=== PATIENT | female | born 1940 | race Caucasian/White ===

== ENCOUNTER 2016-12-01 15:15 | Emergency (ER) | payer MEDICARE, BC ==
[2016-12-01 15:47] LABS: BASOPHILS % (AUTO) 1 % (0-3); EOSINOPHILS % (AUTO) 1 % (0-9); HEMATOCRIT 41 % (35-47); MEAN CORPUSCULAR HGB CONC 33.6 gm/dl (32.0-36.0); MEAN CORPUSCULAR VOLUME 85 fL (81-99); MONOCYTES % (AUTO) 13.3 % (0-12); NEUTROPHILS % (AUTO) 52.6 % (37-80)
[2016-12-01 15:48] VITALS: TEMP 96
[2016-12-01] MEDS ORDERED: LOSARTAN POTASSIUM 50 MG TAB PO ONE (15:50)
[2016-12-01] MEDS ORDERED: PROPRANOLOL HYDROCHLORIDE 20 MG TAB PO ONE (15:50)
[2016-12-01 15:59] LABS: ALBUMIN 3.4 gm/dl (3.4-5.0); CALCIUM 9.2 mg/dl (8.5-10.1); POTASSIUM 3.6 mMol/L (3.5-5.1)
[2016-12-01] MEDS ORDERED: LOSARTAN POTASSIUM 50 MG TAB ONE (16:00)
[2016-12-01] MEDS ORDERED: LABETALOL HYDROCHLORIDE 5 MG/ML SOL IV ONE ×2 (17:16→17:20)
[2016-12-01] MEDS ORDERED: SODIUM CHLORIDE 0.9% FLUSH 10 ML SOL IV PRN (17:30)
[2016-12-01 18:26] VITALS: BP 163/87; PULSE 59; RESP 16; O2SAT 97
== END 2016-12-01 18:03 | disposition home or self-care (01) | DRG 305 ==
LOC: ED 15:15
DX: I10 Essential (primary) hypertension (principal); R55 Syncope and collapse
CPT/HCPCS: 80053; 84484; 85025; 93005; 96374; 99284; 99285